=== PATIENT | female | born 1970 | race Caucasian/White ===

== ENCOUNTER 2024-10-23 08:50 | Emergency (ER) | payer MEDICAID ==
[~2024-10-23] VITALS: Ht 162.6 cm; Wt 62.0 kg
[2024-10-23 08:54] VITALS: TEMP 36.8; O2SAT 98
[2024-10-23 09:26] VITALS: TEMP 98.7
[2024-10-23] MEDS: ACETAMINOPHEN 325MG TABLET PO ONE (09:26)
[2024-10-23 10:01] VITALS: BP 145/73; PULSE 90; RESP 19; O2SAT 98
== END 2024-10-23 10:03 | disposition home or self-care (01) ==
LOC: ER 08:50
DX: S20.219A Contusion of unspecified front wall of thorax, initial encounter (principal); E11.9 Type 2 diabetes mellitus without complications; F41.9 Anxiety disorder, unspecified; I10 Essential (primary) hypertension; Z95.810 Presence of automatic (implantable) cardiac defibrillator; V89.2XXA Person injured in unspecified motor-vehicle accident, traffic, initial encounter; Y93.89 Activity, other specified; Y92.410 Unspecified street and highway as the place of occurrence of the external cause; Y99.8 Other external cause status
CPT/HCPCS: 71045; 93005; 99283